=== PATIENT | male | born 1970 | race Caucasian/White ===

== ENCOUNTER 2017-01-28 01:19 | Emergency (ER) | payer MEDICARE ==
[~2017-01-28 01:19] MED LIST: INDERAL-DPS10 MG PO; LACTULOSE20 GM/30 M PO; LASIX DPS20 MG PO; PROTONIX40 MG PO
--- NOTE | 2017-01-28 04:34 | ER ---
ADMIT: 01/28/2017 RM/LOC: ER [facility] MR#: [id number] [address] [address] [place] [address] Emergency Room Report SEX: M AGE: 47 : 1970 DATE: 01/28/2017 HISTORY OF PRESENT ILLNESS: The January the patient is a 47-year-old male with end-stage hepatitis C, complicated by portal hypertension, esophageal varices, massive GI bleed, variceal banding and chronic hepatic encephalopathy. Continued drug abuse and noncompliance with medications and intolerant of hepatitis C therapy, last tried in 2012. Patient was arrested tonight for warrants. Told the officer that he had bloody emesis, therefore was transported for medical clearance. Officer did not witness any bloody emesis. PHYSICAL EXAMINATION: GENERAL: Exam remarkable for nontoxic, alert, but somnolent and compliant patient. ABDOMEN: Soft with no ascites or tenderness. RECTAL: Negative for Hematest positive stool. No vomiting was noted in department. EMERGENCY ROOM COURSE: Patient received 1 L of fluid. Zofran 8 mg IV push, Protonix 40 mg IV push. Hemoglobin 12.9, baseline is 10. WBC 3.9, platelets 98. Potassium 3.6, INR 1.19, minimally elevated alkaline phosphatase, normal bilirubin and ALT, minimally elevated AST. Ammonia 108, baseline 100. Lactic 1.3. Troponin less than 0.015. ETOH 6. CRP less than 0.29. No record of quantitative hepatitis C RNA by PCR. PLAN: We will obtain baseline. Discussed disposition with Dr. Tillman, who is in agreement with this physician that he may safely be discharged to [facility], practicing body fluid precautions. First dose of lactulose 15 mL in department. Instructions to [facility] nurse for lactulose 15 mL p.o. q.i.d. Follow up Dr. Tillman on [facility] as needed. James Orosco MD/ mejia JOB #: [id number] CC: James Orosco MD, Attending Physician Tatiana Oliva MD, Family Physician Chetan Tillman MD
[2017-05-29] MEDS ORDERED: PROTONIX40 MG PO (10:33)
[2017-05-29] MEDS ORDERED: INDERAL-DPS10 MG PO (10:33)
[2017-05-29] MEDS ORDERED: [UNRECOGNIZED DRUG - OTHER] TP (10:35)
== END 2017-01-28 02:30 ==
LOC: ER 01:19
DX: K72.90 Hepatic failure, unspecified without coma (principal); B18.2 Chronic viral hepatitis C; F15.10 Other stimulant abuse, uncomplicated; I10 Essential (primary) hypertension; Z98.890 Other specified postprocedural states

== ENCOUNTER 2017-05-13 09:00 | Emergency (ER) | payer MEDICARE ==
--- NOTE | 2017-05-18 14:44 | ER ---
ADMIT: 05/13/2017 RM/LOC: ER [facility] MR#: [id number] [id number] [address] [place] [address] Emergency Room Report SEX: M AGE: 47 : 1970 DATE: 05/13/2017 ADDENDUM: CHIEF COMPLAINT: Just needs medical clearance for residential. HISTORY OF PRESENT ILLNESS: This is a 47-year-old male, who has a history of having anemia and alcohol issues. He just came in to the ER to be cleared. His hemoglobin here was 12.3. LFTs; his alkaline phosphatase is 169, AST 61, and ALT is 59. I am discharging him with police. Told him to follow up with his primary care physician as scheduled in 2 days to recheck him. CLINICAL IMPRESSION: Chronic anemia. MADELIN Boudreaux / Rojelio Brandon MD / mejia JOB #: [id number] CC: Rojelio Brandon MD, Attending Physician UNKNOWN, Family Physician
[2017-05-29] MEDS ORDERED: PROTONIX40 MG PO (10:33)
[2017-05-29] MEDS ORDERED: INDERAL-DPS10 MG PO (10:33)
[2017-05-29] MEDS ORDERED: [UNRECOGNIZED DRUG - OTHER] TP (10:35)
== END 2017-05-13 10:30 ==
LOC: ER 09:00
DX: D64.9 Anemia, unspecified (principal); F17.210 Nicotine dependence, cigarettes, uncomplicated; Z79.899 Other long term (current) drug therapy